=== PATIENT | male | born 1945 | race Two or more races ===

== ENCOUNTER 2020-04-07 18:44 | Observation (INO) | payer MEDICARE ==
[~2020-04-07] VITALS: Ht 172.7 cm; Wt 95.4 kg
[2020-04-07] MEDS ORDERED: DIPHENHYDRAMINE 25 MG CAPSULE ONE (18:57)
[2020-04-07] MEDS ORDERED: DIPHENHYDRAMINE 25 MG CAPSULE PO ONE (19:00)
[2020-04-07 19:32] LABS: BASOPHILS % (AUTO) 1 % (0-1); EOSINOPHILS % (AUTO) 1 % (1-7); LYMPHOCYTES % (AUTO) 25 % (22-44); MEAN CORPUSCULAR HEMOGLOBIN 32.7 pg (27.5-34.5); MEAN CORPUSCULAR HGB CONC 35.9 g/dL (33.2-36.2); MEAN PLATELET VOLUME 9.1 fL (7.4-10.4); MONOCYTES % (AUTO) 8 % (2-9); NEUTROPHILS % (AUTO) 65 % (42-75); PLATELET COUNT 255 x10^3/uL (130-400); RED BLOOD COUNT 5.29 x10^6/uL (4.38-5.82); RED CELL DISTRIBUTION WIDTH 13.6 % (9.4-14.8)
[2020-04-07 19:38] LABS: ALANINE AMINOTRANSFERASE 25 U/L (12-78); ALBUMIN 3.8 g/dL (3.4-5.0); ANION GAP 5 mmol/L (5-15); CALCIUM 9.3 mg/dL (8.5-10.1); CHLORIDE 106 mmol/L (98-107)
[2020-04-07 19:42] LABS: ALKALINE PHOSPHATASE 86 U/L (45-117); BILIRUBIN,TOTAL 1.1 mg/dL (0.2-1.0); CREATININE 0.88 mg/dL (0.7-1.3); TOTAL PROTEIN 8.4 g/dL (6.4-8.2); TROPONIN I < 0.015 ng/mL (0.000-0.045)
--- NOTE | 2020-04-07 19:54 | NUR ---
late entry: pt stated he was [place] here from [id number], states having numbness in mouth/jaw, resolved now. pt c/o heaviness in chest, st with pvc on monitor. all monitors applied and side rail up, urinal and blankets given. at bs.
--- NOTE | 2020-04-07 20:30 | NUR ---
pt to room 17, stable in [facility].
--- NOTE | 2020-04-07 20:50 | NUR ---
PT RESTING IN ROOM, AT BEDSIDE. BOTH ARMENIAN SPEAKING. DENIES NEEDS
[2020-04-07 20:56] LABS: MD SCAN
--- NOTE | 2020-04-07 21:50 | NUR ---
PT RESTING, EYES SHUT, AT BEDSIDE
[2020-04-07] MEDS ORDERED: LINA5TAB PO (23:04)
[2020-04-07] MEDS ORDERED: METF1000 PO (23:04)
[2020-04-07] MEDS ORDERED: LOSA25TA2 PO (23:04)
[2020-04-07] MEDS ORDERED: DAPA10TA PO (23:04)
--- NOTE | 2020-04-07 23:10 | NUR ---
[facility] AT BEDSIDE
--- NOTE | 2020-04-07 23:11 | NUR ---
PT UNABLE TO REMEMBER ALL OF HOME MEDICATIONS, UPDATED MED REC WITH WHAT PT CAN REMEMBER.
[2020-04-07] MEDS ORDERED: POLYETHYLENE GLYCOL 17 GM PACKET PO PRN (23:30)
[2020-04-07] MEDS ORDERED: BISACODYL 10 MG SUPP PR PRN (23:30)
[2020-04-07] MEDS ORDERED: POTASSIUM CHLORIDE 20 MEQ TAB.ER.PRT PO ONE (23:30)
[2020-04-07] MEDS ORDERED: morphine SULFATE 10 MG/ML, 1ML IVPush PRN (23:30)
[2020-04-07] MEDS ORDERED: ACETAMINOPHEN 325 MG TABLET PO PRN (23:30)
[2020-04-07] MEDS ORDERED: NITROGLYCERIN 0.4 MG BOTTLE (25 TABS) SL PRN (23:30)
[2020-04-07] MEDS ORDERED: ONDANSETRON ODT 4 MG PO PRN (23:30)
--- NOTE | 2020-04-08 00:02 | NUR ---
REPORT GIVEN TO JITENDRA ROSE
[2020-04-08] MEDS ORDERED: MAGNESIUM SULFATE PMX 2GM/50ML 50 ML IV ONE (00:30)
[2020-04-08 01:00] VITALS: BP 135/87
[2020-04-08 01:56] LABS: TROPONIN I < 0.015 ng/mL (0.000-0.045)
[2020-04-08] MEDS: HEPARIN 5,000 UNITS/ML, 1ML SQ SCH ×2 (02:27→11:20)
[2020-04-08] MEDS: SODIUM CHLORIDE FLUSH 10ML SYR IVF SCH ×2 (02:28→08:24)
[2020-04-08] MEDS ORDERED: ASPIRIN 81 MG TABLET CHEW PO SCH (06:00)
[2020-04-08 07:05] LABS: BASOPHILS % (AUTO) 1 % (0-1); EOSINOPHILS % (AUTO) 2 % (1-7); LYMPHOCYTES % (AUTO) 27 % (22-44); MD NO; MEAN CORPUSCULAR HEMOGLOBIN 32.9 pg (27.5-34.5); MONOCYTES % (AUTO) 8 % (2-9); NEUTROPHILS % (AUTO) 63 % (42-75); PLATELET COUNT 236 x10^3/uL (130-400); RED BLOOD COUNT 4.93 x10^6/uL (4.38-5.82); RED CELL DISTRIBUTION WIDTH 13.9 % (9.4-14.8)
[2020-04-08 07:15] LABS: CHOLESTEROL, TOTAL 118 mg/dL (140-239)
[2020-04-08 07:20] VITALS: BP 127/78
[2020-04-08 07:22] LABS: CHLORIDE 109 mmol/L (98-107)
[2020-04-08 07:26] LABS: ANION GAP 4 mmol/L (5-15)
[2020-04-08 07:32] LABS: CHOL/HDL RATIO 3.2; HDL CHOL % 31 % (26-37); HDL CHOLESTEROL (DIRECT) 37 mg/dL (40-60); LDL CHOLESTEROL,CALCULATED 52 mg/dL (54-169); LDL/HDL RATIO 1.4 (0.5-3.0); TRIGLYCERIDES 144 mg/dL (50-200); VLDL CHOLESTEROL 29 mg/dL (0-25)
[2020-04-08 07:33] LABS: TROPONIN I < 0.015 ng/mL (0.000-0.045)
[2020-04-08] MEDS ORDERED: POTASSIUM CHLORIDE 20 MEQ TAB.ER.PRT PO ONE (09:00)
[2020-04-08] MEDS ORDERED: TEMPLATE NON-FORMULARY MED. (Dapagliflozin Propanediol (Farxiga) 10 MG) PO SCH (09:00)
[2020-04-08] MEDS ORDERED: ACETAMINOPHEN 325 MG TABLET PO PRN (09:00)
[2020-04-08] MEDS ORDERED: LOSARTAN 25MG TABLET PO SCH (09:00)
[2020-04-08] MEDS ORDERED: LINAGLIPTIN 5 MG TAB PO SCH (09:00)
[2020-04-08] MEDS ORDERED: SENNA/DOCUSATE TABLET PO SCH (09:00)
[2020-04-08] MEDS ORDERED: REGADENOSON 0.4 MG/5 ML SYRINGE ONE (09:05)
[2020-04-08] MEDS ORDERED: INSULIN LISPRO 100 UNITS/ML, PEN SQ-INSULIN SCH (11:00)
[2020-04-08] MEDS ORDERED: morphine SULFATE 10 MG/ML, 1ML IVPush PRN (11:30)
[2020-04-08 13:05] VITALS: BP 149/77
== END 2020-04-08 14:15 | disposition home or self-care (01) ==
LOC: ED 21:18 → INTOOBSV 23:00 → EDIP 23:00 → 5SO 04-08 00:19 → DCLOUNGE 04-08 14:07
PROVIDERS: ADMIT Family Medicine; ATTEND Internal Medicine
DX: R07.89 Other chest pain (principal); I16.0 Hypertensive urgency; I10 Essential (primary) hypertension; R55 Syncope and collapse; E87.6 Hypokalemia; E66.9 Obesity, unspecified; E78.5 Hyperlipidemia, unspecified; E11.9 Type 2 diabetes mellitus without complications; G47.30 Sleep apnea, unspecified; Z79.84 Long term (current) use of oral hypoglycemic drugs; Z79.899 Other long term (current) drug therapy
CPT/HCPCS: 36415; 71045; 78452; 80048; 80053; 80061; 82962; 83036; 83735; 84484; 85025; 85379; 93005; 93017; 93306; 93880; 96365; 96366; 96372; 99285; A9502; C9898; G0378; J1644; J2785; J3475; J1815